=== PATIENT | male | born 1955 | race Caucasian/White ===

== ENCOUNTER 2018-07-22 21:07 | Emergency (ER) | payer SELFPAY ==
--- NOTE | 2018-07-22 21:45 | NUR ---
PATIENT LEFT WITHOUT BEING TRIAGED AND SEEN BY ERMMartha
== END 2018-07-22 22:02 | disposition left against medical advice (07) ==
LOC: ER 21:08
DX: Z53.21 Procedure and treatment not carried out due to patient leaving prior to being seen by health care provider (principal)